=== PATIENT | female | born 2000 | race Caucasian/White ===

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

== ENCOUNTER 2020-08-27 20:24 | Inpatient (IN) | payer SELFPAY ==
[2020-08-27] VITALS (11 sets, daily range): BP systolic 105–142; BP diastolic 61–77; PULSE 113–140; RESP 16–23; TEMP 37.8; O2SAT 92–100
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
[2020-08-27 21:07] LABS: BE (Venous) 0 mmol/L (-2-3); HCO3 (Venous) 26 mmol/L (23-28); O2 Sat (Venous) 64 %; TCO2 (Venous) 23 mmol/L (24-29); pCO2 (Venous) 44 mmHg (41-51); pH (Venous) 7.37 (7.31-7.41); pO2 (Venous) 33 mmHg
[2020-08-27 21:08] LABS: Lactate 0.9 mmol/L (0.6-1.4)
[2020-08-27 21:10] LABS: Absolute Neutrophil Count 18.18 10^3/uL (1.2-6.7); Basophils % 0.2; HCT 39.9 % (36.0-46.0); HGB 13.7 g/dL (11.2-15.7); Immature Grans % 0.5; Lymphocytes % 5.1; MCH 30.2 pg (27.0-33.0); MCHC 34.3 % (32.0-36.0); MCV 87.9 fL (80-95); MPV 10.1 fL (8.0-11.0); Monocytes % 6.9; Neutrophils % 87.3; Nucleated RBC 0 %; Platelet Count 316 10^3/uL (130-400); RBC 4.54 10^6/uL (3.93-5.22); RDW 11.2 % (11.7-14.6); RDW-SD 35.8 fL; WBC 20.83 10^3/uL (4.4-10.8)
--- NOTE | 2020-08-27 21:17 | DI.CT_ITS ---
EXAM: CT LOWER EXTREMITY RT W CLINICAL HISTORY: fever, pain, erythema. TECHNIQUE: Imaging Protocol: Axial computed tomography images with coronal and sagittal reformatted images were created and reviewed. CONTRAST MATERIAL: Intravenous: Omnipaque 350 Contrast volume:100 ml Contrast route:IV - Oral: no COMPARISON: No exams were available for comparison FINDINGS: There is no evidence of fracture. Hip joint appears intact. No bony erosions are seen. There is so ft tissue thickening and stranding in the posterolateral aspect of the thigh. There is no drainable collection or abnormal gas. The visualized portions of the pelvis are unremarkable. The vasculature is patent. IMPRESSION: Findings consistent with cellulitis of the posterolateral thigh. RADIATION DOSE DELIVERED: 512.05mGy.cm Total DLP DATA REPOSITORY: All CT scans at this facility are submitted to the National Radiology Data Registry (NRDR) Dose Index Registry (DIR) with the [employer] ([employer]). RADIATION OPTIMIZATION: All CT scans at this facility use at least one of these dose optimization te chniques: automated exposure control; mA and/or kV adjustment per patient size (includes targeted exa ms where dose is matched to clinical indication); or iterative reconstruction.
[2020-08-27 21:19] LABS: Absolute Basophil Count 0.04 10^3/uL (0.0-0.2); Absolute Lymphocyte Count 1.06 10^3/uL (1.2-3.4); Absolute Monocyte Count 1.44 10^3/uL (0.1-0.8)
[2020-08-27] MEDS: Ketorolac 30 MG/ML VIAL IVP (21:20)
[2020-08-27] MEDS: CLINDAMYCIN 900 MG/50 ML BAG 50 MG IVPB (21:20)
[2020-08-27] MEDS: Lactated Ringers 2,000 ML 1000 ML IV (21:20)
[2020-08-27] MEDS: Omnipaque 350 MG/ML 100 ML BTL IV (21:30)
[2020-08-27] MEDS: Normal Saline - Diluent 50 ML VIAL IV (21:35)
[2020-08-27] MEDS: Normal Saline Flush 10 ML SYR IVP (21:35)
[2020-08-27 21:40] LABS: Creatine Kinase 107 U/L (26-192)
[2020-08-27 21:49] LABS: ALT 40 U/L (14-59); AST 21 U/L (15-37); Albumin 4.4 g/dL (3.4-5.0); Alkaline Phosphatase 62 U/L (46-116); Anion Gap 9.2 mmol/L (3-11); BUN 9 mg/dL (7-18); Bilirubin, Total 0.7 mg/dL (0.2-1.0); CO2 26.8 mmol/L (21.0-32.0); CREATININE 0.96 mg/dL (0.55-1.02); Chloride 104 mmol/L (98-107); Glucose 89 mg/dL (74-106); Potassium 3.5 mmol/L (3.5-5.1); Sodium 140 mmol/L (136-145); Total Protein 7.8 g/dL (6.4-8.2)
[2020-08-27 21:52] LABS: Bilirubin Negative (Negative); Blood Negative (Negative); Clarity Sl Cloudy (Clear); Glucose Negative (Negative); Ketones Negative (Negative); Leukocyte Esterase Trace (Negative); Nitrite Negative (Negative); RBC Negative HPF (0-2); Specific Gravity >= 1.030 (1.005-1.025); Urobilinogen 0.2 EU/dL (Up TO 0.2); pH 5.5 (5-8)
[2020-08-27 21:53] LABS: Bacteria Many HPF (Negative); C & S Indicated? No/Sq. Contamination; Casts Negative LPF (Negative); Crystals Negative HPF (Negative); Epithelial Cells Many HPF (Negative); Mucus Negative (Negative)
[2020-08-27] MEDS: LORazepam 2 MG/ML VIAL 0.5 MG IVP (21:53)
[2020-08-27] MEDS: VANCOMYCIN 1,250 MG in Normal Saline 250 ML 166.6666 MG IVPB (22:02)
--- NOTE | 2020-08-27 22:24 | DI.VRAD_ITS ---
PROCEDURE INFORMATION: Exam: CT Right Lower Extremity With Contrast; Thigh Exam date and time: 08/27/2020 9:37 PM Age: 19 years old Clinical indication: Thigh; Right; Patient HX: Fever, pain, erythema, eval for nec fasc TECHNIQUE: Imaging protocol: CT of the Right lower extremity from level of pelvis to knee joint with intravenous contrast was performed. Exam focused on the thigh. Radiation optimization: All CT scans at this facility use at least one of these dose optimization techniques: automated exposure control; mA and/or kV adjustment per patient size (includes targeted exams where dose is matched to clinical indication); or iterative reconstruction. Contrast material: OMNIPAQUE 350; Contrast volume: 100 ml; Contrast route: INTRAVENOUS (IV); COMPARISON: No relevant prior studies available. FINDINGS: Bones/joints: Normal. No acute fracture or dislocation. Soft tissues: Skin thickening to 5 mm with subjacent stranding of subcutaneous fat in posterolateral aspect of the thigh. No subcutaneous gas, collections or air-fluid levels in the affected area. Vasculature: Right iliac, femoral and popliteal as well as visualized portions of right infrapopliteal arteries are patent without stenosis. Bowel: No dilated loops of bowel. Appendix: Normal appendix. Bladder: Visualized portion of urinary bladder appears normal. Reproductive: Anteverted uterus. IMPRESSION: Findings consistent with the presence of cellulitis in posterolateral thigh. Dictated and Authenticated by: Ben Peterson MD. Ordering:JAIRO Eckert MD
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
[2020-08-28] VITALS (10 sets, daily range): BP systolic 96–129; BP diastolic 47–76; PULSE 77–117; RESP 17–22; TEMP 36.4–38.6; O2SAT 95–100
[2020-08-28] MEDS: Normal Saline Flush 10 ML SYR IVP ×2 (00:44→10:25)
[2020-08-28] MEDS: Acetaminophen 500 MG TAB (04:50)
[2020-08-28] MEDS: CLINDAMYCIN 900 MG/50 ML BAG 50 MG IVPB ×3 (04:56→20:53)
[2020-08-28] MEDS: Acetaminophen 325 MG TAB 1000 MG PO (04:57)
[2020-08-28 06:57] LABS: Abs Immature Grans 0.08 10^3/uL (0.0-0.06); Absolute Basophil Count 0.04 10^3/uL (0.0-0.2); Absolute Eosinophil Count 0.03 10^3/uL (0.0-0.7); Absolute Monocyte Count 1.41 10^3/uL (0.1-0.8); Absolute Neutrophil Count 11.14 10^3/uL (1.2-6.7); Basophils % 0.3; Eosinophils % 0.2; HGB 11.7 g/dL (11.2-15.7); Immature Grans % 0.6; Lymphocytes % 9.9; MCH 29.7 pg (27.0-33.0); MCHC 34.4 % (32.0-36.0); MCV 86.3 fL (80-95); MPV 10.1 fL (8.0-11.0); Nucleated RBC 0 %; Platelet Count 273 10^3/uL (130-400); RBC 3.94 10^6/uL (3.93-5.22); RDW 11.3 % (11.7-14.6); RDW-SD 35.8 fL
[2020-08-28 07:08] LABS: ALT 31 U/L (14-59); AST 13 U/L (15-37); Albumin 3.3 g/dL (3.4-5.0); Alkaline Phosphatase 50 U/L (46-116); Anion Gap 9.5 mmol/L (3-11); BUN 9 mg/dL (7-18); Bilirubin, Total 1.2 mg/dL (0.2-1.0); CO2 24.5 mmol/L (21.0-32.0); CREATININE 0.93 mg/dL (0.55-1.02); Calcium 8.2 mg/dL (8.5-10.1); Chloride 104 mmol/L (98-107); Glucose 101 mg/dL (74-106); Potassium 3.2 mmol/L (3.5-5.1); Sodium 138 mmol/L (136-145); Total Protein 6.3 g/dL (6.4-8.2)
[2020-08-28] MEDS: Potassium Chloride 20 MEQ TABCR 40 MEQ PO (08:05)
[2020-08-28 08:38] LABS: *AMPHETAMINES SCREEN URINE Negative (Negative); *BARBITURATES SCREEN URINE Negative (Negative); *BENZODIAZEPINES SCREEN URINE Negative (Negative); Cannabinoids THC Negative (Negative); Cocaine Screen,Urine Negative (Negative); METHADONE URINE SCREEN Negative (Negative); OPIATES URINE SCREEN Negative (Negative)
[2020-08-28 08:57] LABS: Tricyclic Antidepressants Negative (Negative)
[2020-08-28] MEDS: Normal Saline 1,000 ML 100 ML IV ×2 (10:25→22:40)
--- NOTE | 2020-08-28 10:41 | INITIAL_ITS ---
- If Service Date Differs Date of service: 08/28/20 Time of Service: 10:41 Care Management Initial Assess REASON FOR HOSPITALIZATION:: Cellulitis and abscess of leg PAST MEDICAL HISTORY/PAST SURGICAL HISTORY:: Medical History . Anxiety. Breast mass, left. Depression. Eczema. Hearing decreased. Homeless single person. Otalgia of both ears. School problem. Sleep difficulties. Snoring. Surgical History . Tooth extraction PREVIOUS FUNCTIONAL STATUS/SOCIAL/FAMILY SUPPORTS:: Radha lives in an apartment in [facility] with her borfriend. She has several siblings but they are not in this area and only talk once in a while. Radha stated that she works at [employer] and is no longer eligible for Medicaid. Radha is independent at baseline. CURRENT FUNCTIONAL STATUS:: Radha was lying in bed when CM met with her. Shemaintained minimal contact and did not fully engage with CM. This afternoon she was crying and admitted that she was scared because her provider told her she needed surgery. Her boyfriend is her only support but he is planning to visit this afternoon. ADVANCE DIRECTIVES:: none on file Has patient been provided with info about the portal/API?: Yes Did the patient sign up for the portal?: No CODE STATUS:: Full Code INSURANCE COVERAGE / FINANCIAL ISSUES:: Self Pay. A referral has been made for Medicaid. CM will follow up PRIMARY CARE PHYSICIAN:: Ramon Can POTENTIAL DISCHARGE NEEDS:: Follow up with PCP and discharge plan PATIENT/FAMILY EDUCATION NEEDS:: Discharge plan, limitations, follow up plan, [facility] Me [employer] TRANSPORTATION:: via private vehicle PLAN:: Radha will likely be discharged with no home services. She willl follow up with her PCP and discharge plan of care. CM will followup re: Medicaid application and continue to support Radha and her discharge needs.
[2020-08-28 14:06] LABS: C-Reactive Protein 2.24 mg/dL (0.0-0.3)
[2020-08-28 15:03] LABS: COVID-19 RT-PCR UVMMC Result Negative (Negative)
--- NOTE | 2020-08-28 15:12 | NUR.NOTE ---
Nursing Note: Spoke with step mother Elana Galo to update on pt condition and on hippa list.
--- NOTE | 2020-08-28 15:20 | W.PM.PROGNOT ---
Date of Service Date of service: 08/28/20 Time of Service: 15:20 Assessment and Plan Assessment and plan (1) Sepsis: Status: Acute Assessment and plan: Due to cellulitis/possible forming abscess RLE. Blood cultures are pending. The patient is on vancomycin, clindamycin, and ertapenem and getting worse despite these interventions. I have consulted general surgery for possible debridement/I&D. Continue IVF, above abx. (2) Cellulitis of right lower extremity: Status: Acute Assessment and plan: As above (3) Hypokalemia: Status: Acute Assessment and plan: Replete and monitor (4) Major depression: Status: Chronic Assessment and plan: The patient states that she is not so much depressed as she is very anxious. She states that she used to be on fluoxetine but could no longer afford it so she stopped taking it. She is interested in resuming it again. WIll start 20 mg of fluoxetine tomorrow am. Will speak with care management about resources to help afford this medication in the community. Qualifiers: Major depression recurrence: recurrent Active/Remission status: in partial remission Qualified Code(s): F33.41 - Major depressive disorder, recurrent, in partial remission (5) DVT prophylaxis: Status: Acute Assessment and plan: Not required in an ambulatory 19 year old female (6) Discharge planning issues: Status: Acute Assessment and plan: Full code Continues to require hospitalization. Subjective Subjective Interval history since last seen: Radha states that her R thigh hurts and that she feels tired. She denies dizziness, chest pain, shortness of breath, nausea. She denies seeing an insect actually biting her. The erythema now extends outside of the circumscribed lines. Febrile now - 38.6. Exam Narrative Exam Narrative: General: pleasant female, does not appear in acute distress, A&Ox3, uncomfortable HEENT: EOMI, MMM Heart: RRR, tachycardic Lungs: CTAB Abdomen: soft, nontender, nondistended Extremities: R lateral thigh with an area of erythema extending beyond the circumscribed line with a wound/bullae which is leaking. Objective Last Vital Signs Temp 37.3 C 08/28/20 11:10 Pulse 95 H 08/28/20 11:10 Resp 19 08/28/20 11:10 BP 100/66 08/28/20 11:10 Pulse Ox 100 08/28/20 11:10 Laboratory Results - last 24 hr 08/27/20 08/27/20 08/27/20 20:49 20:51 20:55 WBC RBC Hgb Hct MCV MCH MCHC RDW Plt Count MPV Immature Gran % Neutrophils % Lymphocytes % Monocytes % Eosinophils % Basophils % Nucleated RBC % Absolute Neutrophils Absolute Lymphocytes Absolute Monocytes Absolute Eosinophils Absolute Basophils VBG pH 7.37 VBG pCO2 44 VBG pO2 33 VBG HCO3 26 VBG Total CO2 23 L VBG O2 Saturation 64 VBG Base Excess 0 VBG Lactate Sodium Potassium Chloride Carbon Dioxide Anion Gap BUN Creatinine Estimated GFR/1.73 m2 Glucose Calcium Magnesium Total Bilirubin AST ALT Alkaline Phosphatase Creatine Kinase C-Reactive Protein Total Protein Albumin Urine Color Yellow Urine Clarity Sl cloudy Urine pH 5.5 Ur Specific [place] >= 1.030 H Urine Protein Negative Urine Ketones Negative Urine Blood Negative Urine Nitrite Negative Urine Bilirubin Negative Urine Urobilinogen 0.2 Ur Leukocyte Esterase Trace H Urine RBC Negative Urine WBC 10-20 H Ur Epithelial Cells Many Urine Crystals Negative Urine Bacteria Many Urine Casts Negative Urine Mucus Negative Ur Culture Indicated? No/sq. contamination Urine Glucose Negative Urine Opiates Screen Negative Urine Methadone Screen Negative Ur Barbiturates Screen Negative Ur Tricyclics Screen Negative Ur Amphetamines Screen Negative U Benzodiazepines Scrn Negative Urine Cocaine Screen Negative Ur THC Screen Negative COVID-19 PCR Nasopharyn COVID-19 PCR Ref Test Perform Site 08/27/20 08/27/20 08/27/20 21:00 21:00 21:00 WBC 20.83 H RBC 4.54 Hgb 13.7 Hct 39.9 MCV 87.9 MCH 30.2 MCHC 34.3 RDW 11.2 L Plt Count 316 MPV 10.1 Immature Gran % 0.5 Neutrophils % 87.3 Lymphocytes % 5.1 Monocytes % 6.9 Eosinophils % 0.0 Basophils % 0.2 Nucleated RBC % 0 Absolute Neutrophils 18.18 H Absolute Lymphocytes 1.06 L Absolute Monocytes 1.44 H Absolute Eosinophils 0.00 Absolute Basophils 0.04 VBG pH VBG pCO2 VBG pO2 VBG HCO3 VBG Total CO2 VBG O2 Saturation VBG Base Excess VBG Lactate 0.9 Sodium 140 Potassium 3.5 Chloride 104 Carbon Dioxide 26.8 Anion Gap 9.2 BUN 9 Creatinine 0.96 Estimated GFR/1.73 m2 >= 60.00 Glucose 89 Calcium 9.0 Magnesium Total Bilirubin 0.7 AST 21 ALT 40 Alkaline Phosphatase 62 Creatine Kinase C-Reactive Protein Total Protein 7.8 Albumin 4.4 Urine Color Urine Clarity Urine pH Ur Specific [place] Urine Protein Urine Ketones Urine Blood Urine Nitrite Urine Bilirubin Urine Urobilinogen Ur Leukocyte Esterase Urine RBC Urine WBC Ur Epithelial Cells Urine Crystals Urine Bacteria Urine Casts Urine Mucus Ur Culture Indicated? Urine Glucose Urine Opiates Screen Urine Methadone Screen Ur Barbiturates Screen Ur Tricyclics Screen Ur Amphetamines Screen U Benzodiazepines Scrn Urine Cocaine Screen Ur THC Screen COVID-19 PCR Nasopharyn COVID-19 PCR Ref Test Perform Site 08/27/20 08/27/20 08/28/20 21:00 23:58 06:40 WBC RBC Hgb Hct MCV MCH MCHC RDW Plt Count MPV Immature Gran % Neutrophils % Lymphocytes % Monocytes % Eosinophils % Basophils % Nucleated RBC % Absolute Neutrophils Absolute Lymphocytes Absolute Monocytes Absolute Eosinophils Absolute Basophils VBG pH VBG pCO2 VBG pO2 VBG HCO3 VBG Total CO2 VBG O2 Saturation VBG Base Excess VBG Lactate Sodium 138 Potassium 3.2 L Chloride 104 Carbon Dioxide 24.5 Anion Gap 9.5 BUN 9 Creatinine 0.93 Estimated GFR/1.73 m2 >= 60.00 Glucose 101 Calcium 8.2 L Magnesium Total Bilirubin 1.2 H AST 13 L ALT 31 Alkaline Phosphatase 50 Creatine Kinase 107 C-Reactive Protein Total Protein 6.3 L Albumin 3.3 L Urine Color Urine Clarity Urine pH Ur Specific [place] Urine Protein Urine Ketones Urine Blood Urine Nitrite Urine Bilirubin Urine Urobilinogen Ur Leukocyte Esterase Urine RBC Urine WBC Ur Epithelial Cells Urine Crystals Urine Bacteria Urine Casts Urine Mucus Ur Culture Indicated? Urine Glucose Urine Opiates Screen Urine Methadone Screen Ur Barbiturates Screen Ur Tricyclics Screen Ur Amphetamines Screen U Benzodiazepines Scrn Urine Cocaine Screen Ur THC Screen COVID-19 PCR Negative Nasopharyn COVID-19 PCR Not Applicable Ref Test Perform Site [place] [facility] 08/28/20 08/28/20 06:40 06:40 WBC 14.10 H D RBC 3.94 Hgb 11.7 Hct 34.0 L MCV 86.3 MCH 29.7 MCHC 34.4 RDW 11.3 L Plt Count 273 MPV 10.1 Immature Gran % 0.6 Neutrophils % 79.0 Lymphocytes % 9.9 Monocytes % 10.0 Eosinophils % 0.2 Basophils % 0.3 Nucleated RBC % 0 Absolute Neutrophils 11.14 H Absolute Lymphocytes 1.40 Absolute Monocytes 1.41 H Absolute Eosinophils 0.03 Absolute Basophils 0.04 VBG pH VBG pCO2 VBG pO2 VBG HCO3 VBG Total CO2 VBG O2 Saturation VBG Base Excess VBG Lactate Sodium Potassium Chloride Carbon Dioxide Anion Gap BUN Creatinine Estimated GFR/1.73 m2 Glucose Calcium Magnesium 2.0 Total Bilirubin AST ALT Alkaline Phosphatase Creatine Kinase C-Reactive Protein 2.24 H Total Protein Albumin Urine Color Urine Clarity Urine pH Ur Specific [place] Urine Protein Urine Ketones Urine Blood Urine Nitrite Urine Bilirubin Urine Urobilinogen Ur Leukocyte Esterase Urine RBC Urine WBC Ur Epithelial Cells Urine Crystals Urine Bacteria Urine Casts Urine Mucus Ur Culture Indicated? Urine Glucose Urine Opiates Screen Urine Methadone Screen Ur Barbiturates Screen Ur Tricyclics Screen Ur Amphetamines Screen U Benzodiazepines Scrn Urine Cocaine Screen Ur THC Screen COVID-19 PCR Nasopharyn COVID-19 PCR Ref Test Perform Site
--- NOTE | 2020-08-28 15:31 | PHA.REVIEW ---
Pharmacy Admission Review - Admission Clinical Review (Last Reviewed 08/28/20 @ 05:43 by Apolinar Gleason) Discharge planning issues (Acute) DVT prophylaxis (Acute) Hypokalemia (Acute) Cellulitis of right lower extremity (Acute) Sepsis (Acute) Cellulitis and abscess of leg (Acute) Fasciitis (Acute) cigarette smoke Allergy (Intermediate, Unverified 08/27/20 20:40) house dust Allergy (Intermediate, Unverified 08/27/20 20:40) No Known Drug Allergies Allergy (Unverified 08/27/20 20:40) Height 5 ft 3 in Weight 76.1 kg Cellulitis on thigh - Renal Dosing Renal Dosing: BUN 9 mg/dL (7-18) 08/28/20 06:40 Creatinine 0.93 mg/dL (0.55-1.02) 08/28/20 06:40 CrCl~80ml/min Medications needing adjustments: Reviewed (no med adjustments) - Anticoagulation Anticoagulation: Hgb 11.7 g/dL (11.2-15.7) 08/28/20 06:40 Hct 34.0 % (36.0-46.0) L 08/28/20 06:40 Plt Count 273 10^3/uL (130-400) 08/28/20 06:40 Creatinine 0.93 mg/dL (0.55-1.02) 08/28/20 06:40 DVT Prohphylaxis: N/A (held at this time in case surgeon decides to do a debridement) - Opiate Usage Evaluate Pain Scale/Pains Meds: N/A - Relevant Labs Sodium 138 mmol/L (136-145) 08/28/20 06:40 Potassium 3.2 mmol/L (3.5-5.1) L 08/28/20 06:40 Chloride 104 mmol/L (98-107) 08/28/20 06:40 Magnesium 2.0 mg/dL (1.8-2.4) 08/28/20 06:40 C-Reactive Protein 2.24 mg/dL (0.0-0.3) H 08/28/20 06:40 Electrolytes, C-Reactive P, ESR: Reviewed (Potassium 40meq po x1, WBC down 14.1, trend C-reative protein) - DM Control DM Control: Glucose 101 mg/dL (74-106) 08/28/20 06:40 Insulin Dosing: N/A - Heart Failure/CA EF%, MICHAEL's, B-Blockers, Diuretics: N/A - BP Control BP Control: Blood Pressure 100/66 Blood Pressure 118/72 Blood Pressure 96/59 If elevated: N/A (low BP/sepsis) - IV to PO Switch IV Medications: Reviewed (Ketorolac is IV/prn, IV to oral Antibiotics when appropriate) - Home Meds Home Med List reviewed: Reviewed Relevent Home Meds Not ordered & why?: Fluoxetine not ordered-last filled at retail pharmacy for 30 day supply 04/16/20 - Current meds Current Medication Order Review: Reviewed (Vanco/Ertapenam/Clindamycin, Toradol/APAP for pain -03/08) - Comments Comments/Follow Ups: Had fevers yesterday, Signs of Sepsis with low BP's and high heart rates>100. Blood cultures and leg wound cultures pending and then hopefully can de-escalate. Trend WBC. Procalcitonin was not ordered. Surgery consult for possible debridement of RLE ?Abscess. Watch for DVT prophylaxis if needed, although patient of young age and ambulating Antibiotic Activity - Pharmacy Antibiotic Review Pharmacy Antibiotic Activity: C/S review (Triple Antibiotic coverage for Sepsis from RLE cellulitis-blood and wound cultures pending) - Antibiotic Information Antibiotic Review Info: Triple Antibiotic coverage for Sepsis from RLE cellulitis-blood and wound cultures pending
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
--- NOTE | 2020-08-28 16:03 | NUR.NOTE ---
Nursing Note: @ 1520 - NEW LINES DRAWN AROUND RED/TENDER AREA SURROUNDING RIGHT THIGH WOUND (LINE TIME & DATED)
--- NOTE | 2020-08-28 18:00 | W.PM.OP ---
Date of service: 08/28/20 Time of Service: 18:00 Operative Note Operative Note DATE OF PROCEDURE: 08/28/20 PRE-OP DIAGNOSIS: Infection of right thigh POST-OP DIAGNOSIS: same PROCEDURE: Excision of infected skin and cultures SURGEON: Sally Perez AVIATION PROJECT MANAGER: Joann Treviño ANESTHESIA: MAC and spinal ESTIMATED BLOOD LOSS: 25 PATHOLOGY: none sent COMPLICATIONS: None Patient was transported to: floor Patient's condition: stable Indications: 10 x4 cm area of blistering and necrosis of the skin surrounded by an area of erythema. Concern for Necrotizing fascitis Discussed excision of the nnecrosed skin with the patient and debridement of tissues as needed to remove the infected area. Questions were entertained and answered to her satisfaction and she wished to proceed. No guarantees were given or implied. Findings: Necrosis of skin and purulent pustules. Fat and fascia intact Procedure Description: After informed consent was obtained the patient was taken to the operating room. Anesthesia proceeded to do a spinal anesthetic. The patient was then placed onto her left side with her right knee bent. She was secured in this position with a beanbag. Monitors were applied and she was then given a small amount of sedation. Her right thigh was then prepped and draped in a sterile surgical fashion with iodine. Next the skin was tested with forceps and the patient was unable to feel anything. The blisters were then opened and there was purulent material noted within it. The purulent fluid was cultured both anaerobic and aerobic. The blisters were all scraped away from the skin. The underlying dermis was noted to be white. An incision was made around the necrosis to the skin measuring 10 x 4 cm. The dermis was removed and the sucutaneous tissue was inspected. The skin was send to the lab for cultures. The fatty tissue was all noted to be normal. There was no grayish fluid. An incision was made into the subcutaneous tissue and gently with a hemostat down to the fascia. The fascia was noted to be normal. It was strong and there was no purulent discharge anywhere. The subcutaneous tissue was gently irrigated and the skin was cleaned and dried. A 15 x 5 cm jeremías dressing was applied. The dressing was placed to suction and no leaks were identified. The patient was moved onto the [facility] and taken back upstairs to her room.
--- NOTE | 2020-08-28 18:05 | NUR.NOTE ---
Nursing Note: 08/28/20- pt returned from OR. Pt Awake. BP 98/47, HR 98, SPO2 98% ON ra, TEMP 37.4 with a skin temp reading.Pt denies pain/ SOB, rr 22. MYESHA negative pressure dressing in place posterior right thigh. Pt denies feeling to ble to hip per pt. Scant bloody strike through on dressing.
[2020-08-29 03:29] VITALS: BP 96/60; PULSE 90; RESP 17; TEMP 36.5; O2SAT 97
[2020-08-29] MEDS: CLINDAMYCIN 900 MG/50 ML BAG 50 MG IVPB ×3 (04:06→20:36)
[2020-08-29 06:55] LABS: Abs Immature Grans 0.04 10^3/uL (0.0-0.06); Absolute Basophil Count 0.04 10^3/uL (0.0-0.2); Absolute Eosinophil Count 0.13 10^3/uL (0.0-0.7); Absolute Lymphocyte Count 1.57 10^3/uL (1.2-3.4); Absolute Monocyte Count 1.21 10^3/uL (0.1-0.8); Basophils % 0.4; Eosinophils % 1.2; HCT 35.2 % (36.0-46.0); HGB 11.8 g/dL (11.2-15.7); Immature Grans % 0.4; Lymphocytes % 14.2; MCH 29.9 pg (27.0-33.0); MCHC 33.5 % (32.0-36.0); MCV 89.3 fL (80-95); MPV 10.2 fL (8.0-11.0); Monocytes % 10.9; Neutrophils % 72.9; Nucleated RBC 0 %; Platelet Count 250 10^3/uL (130-400); RBC 3.94 10^6/uL (3.93-5.22); RDW 11.4 % (11.7-14.6); RDW-SD 36.9 fL; WBC 11.08 10^3/uL (4.4-10.8)
[2020-08-29 07:00] LABS: Absolute Neutrophil Count 8.08 10^3/uL (1.2-6.7)
[2020-08-29 07:08] LABS: Anion Gap 8.1 mmol/L (3-11); BUN 7 mg/dL (7-18); C-Reactive Protein 5.73 mg/dL (0.0-0.3); CO2 23.9 mmol/L (21.0-32.0); CREATININE 0.84 mg/dL (0.55-1.02); Calcium 8.4 mg/dL (8.5-10.1); Chloride 107 mmol/L (98-107); Glucose 95 mg/dL (74-106); Magnesium 2.1 mg/dL (1.8-2.4); Potassium 3.8 mmol/L (3.5-5.1); Sodium 139 mmol/L (136-145)
[2020-08-29 07:40] VITALS: BP 105/70; PULSE 78; RESP 16; TEMP 37.1; O2SAT 99
--- NOTE | 2020-08-29 08:02 | W.PM.PROGNOT ---
Documented by User: CRISTINA Blanchard 08/29/20 08:10 Date of Service Date of service: 08/29/20 Time of Service: 08:02 Assessment and Plan Assessment and plan (1) Cellulitis of right lower extremity: Status: Acute Assessment and plan: POD #1 s/p Wound debridement Cultures pending. Continue IV antibitoics MYESHA dressing in place. Educated the patient on how the pump will alarm/lightif the dressing needs to be changed secondary to wound drainage. Erythema present around the MYESHA dressing, appears hearing health technician in color compared to yesterday. Pain has improved significantly Subjective Subjective Interval history since last seen: Radha reports she is feeling better this morning and that her pain is improving. Exam Const General: cooperative, healthy appearing and comfortable Orientation: alert and oriented x3 Resp Effort & Inspection: normal respiratory effort, no audible wheezes and no cough Skin Other: Right thigh- MYESHA dressing in place. Some drainage noted on the dressing. Objective Last Vital Signs Temp 37.1 C 08/29/20 07:40 Pulse 78 08/29/20 07:40 Resp 16 08/29/20 07:40 BP 105/70 08/29/20 07:40 Pulse Ox 99 08/29/20 07:40 Laboratory Results - last 24 hr 08/27/20 08/27/20 08/28/20 20:51 23:58 06:40 WBC RBC Hgb Hct MCV MCH MCHC RDW Plt Count MPV Immature Gran % Neutrophils % Lymphocytes % Monocytes % Eosinophils % Basophils % Nucleated RBC % Absolute Neutrophils Absolute Lymphocytes Absolute Monocytes Absolute Eosinophils Absolute Basophils Sodium Potassium Chloride Carbon Dioxide Anion Gap BUN Creatinine Estimated GFR/1.73 m2 Glucose Calcium Magnesium 2.0 C-Reactive Protein 2.24 H Urine Opiates Screen Negative Urine Methadone Screen Negative Ur Barbiturates Screen Negative Ur Tricyclics Screen Negative Ur Amphetamines Screen Negative U Benzodiazepines Scrn Negative Urine Cocaine Screen Negative Ur THC Screen Negative COVID-19 PCR Negative Nasopharyn COVID-19 PCR Not Applicable Ref Test Perform Site [facility] 08/29/20 08/29/20 06:30 06:30 WBC 11.08 H RBC 3.94 Hgb 11.8 Hct 35.2 L MCV 89.3 D MCH 29.9 MCHC 33.5 RDW 11.4 L Plt Count 250 MPV 10.2 Immature Gran % 0.4 Neutrophils % 72.9 Lymphocytes % 14.2 Monocytes % 10.9 Eosinophils % 1.2 Basophils % 0.4 Nucleated RBC % 0 Absolute Neutrophils 8.08 H Absolute Lymphocytes 1.57 Absolute Monocytes 1.21 H Absolute Eosinophils 0.13 Absolute Basophils 0.04 Sodium 139 Potassium 3.8 Chloride 107 Carbon Dioxide 23.9 Anion Gap 8.1 BUN 7 Creatinine 0.84 Estimated GFR/1.73 m2 >= 60.00 Glucose 95 Calcium 8.4 L Magnesium 2.1 C-Reactive Protein 5.73 H Urine Opiates Screen Urine Methadone Screen Ur Barbiturates Screen Ur Tricyclics Screen Ur Amphetamines Screen U Benzodiazepines Scrn Urine Cocaine Screen Ur THC Screen COVID-19 PCR Nasopharyn COVID-19 PCR Ref Test Perform Site Documented by User: Massiel Ruiz DO 08/29/20 20:18 Assessment and Plan Assessment and plan (1) Cellulitis of right lower extremity: Status: Acute Assessment and plan: Abx: Vanco and Ertepenem PICOs was full today and was changed. Good healthy/beefy granulation tissue present in wound bed. 95% grannular. 5% slough. Not debrided. Surrounding tissue better per pt. C/S pd supportive care
[2020-08-29 09:14] LABS: Procalcitonin 0.1 ng/mL
[2020-08-29 09:35] LABS: Vancomycin, Trough 14.6 ug/mL (10.0-20.0)
[2020-08-29] MEDS: Normal Saline 1,000 ML 100 ML IV (10:36)
[2020-08-29 11:19] VITALS: BP 111/71; PULSE 91; RESP 18; TEMP 36.2; O2SAT 99
--- NOTE | 2020-08-29 11:47 | CMPROGNOTE_ITS ---
- If Service Date Differs Date of service: 08/29/20 Time of Service: 11:47 Care Management Progress Note S/O: Radha was lying on her side in bed when CM met with her. She smiled spontaneously and offered that she is feeling much better. She stated that the surgery was not as bad as she anticipated and that it really helped to have her boyfriend with her. Radha is not clear about what the plan for her is at this time. She said the doctor told her they need to wait to find out what the bact eria is and which antibiotic will be needed. A: Radha is a 19 year old woman admitted on 08/27/20 with cellulitis and abscess of right posterior thigh P:Radha will likely be discharged with no home services. She will follow up with her PCP, surgeon and discharge plan of care. CM left message with [employer] re: Medicaid application and will continue to support Radha and her discharge needs.
--- NOTE | 2020-08-29 12:25 | W.NUTRFU ---
Date of service: 08/29/20 Time of Service: 12:25 Nutritional Follow up NOTE: met with Radha today. She reports eating once daily prior to admission. Following regular meal plan. Weight has been stable > 6 months. PO intake since admit has been poor, however, BF is bringing in food. Reviewed balanced meals and importance of meeting nutrient and fluid needs. Provided my contact information for questions. Time Spent in Nutritional Counseling and Treatment: 10 minutes spent face to face
--- NOTE | 2020-08-29 14:57 | PGE_ITS ---
Date of Service Date of service: 08/29/20 Time of Service: 14:57 Assessment and Plan Assessment and plan (1) Sepsis: Status: Acute Assessment and plan: Due to infected wound and cellulitis RLE. It does not appear that there was necrotizing fasciitis on I&D yesterday. Blood cultures are negative to date. Wound cultures/surgical cultures are pending. Defervesced and WBC is better. Continue vancomycin, clindamycin, and ertapenem (Agree with probiotics). Continue IVF. (2) Cellulitis of right lower extremity: Status: Acute Assessment and plan: As above (3) Hypokalemia: Status: Resolved Assessment and plan: Recheck in am. (4) Major depression: Status: Chronic Assessment and plan: Fluoxetine 20 mg PO daily. Discused with care management re issues with affording this medication. It is on the $4 list at [facility]. Qualifiers: Major depression recurrence: recurrent Active/Remission status: in partial remission Qualified Code(s): F33.41 - Major depressive disorder, recurrent, in partial remission (5) DVT prophylaxis: Status: Acute Assessment and plan: Not required in an ambulatory 19 year old female (6) Discharge planning issues: Status: Acute Assessment and plan: Full code Continues to require hospitalization. Subjective Subjective Interval history since last seen: S/p I&D of R thigh wound yesterday. Radha states she is feeling better today. She denies dizziness, chest pain, shortness of breath, nausea. I talked to her about watching out for sx of yeast infection. Her pain is better today. Exam Narrative Exam Narrative: General: pleasant female, A&Ox3, looks better HEENT: EOMI, MMM Heart: RRR, not tachycardic, no m/r/g Lungs: CTAB Abdomen: soft, nontender, nondistended Extremities: R lateral thigh with wound vac in place; erythema signficantly improved from yesterday Objective Last Vital Signs Temp 36.2 C L 08/29/20 11:19 Pulse 91 H 08/29/20 11:19 Resp 18 08/29/20 11:19 BP 111/71 08/29/20 11:19 Pulse Ox 99 08/29/20 11:19 Laboratory Results - last 24 hr 08/27/20 08/29/20 08/29/20 23:58 06:30 06:30 WBC 11.08 H RBC 3.94 Hgb 11.8 Hct 35.2 L MCV 89.3 D MCH 29.9 MCHC 33.5 RDW 11.4 L Plt Count 250 MPV 10.2 Immature Gran % 0.4 Neutrophils % 72.9 Lymphocytes % 14.2 Monocytes % 10.9 Eosinophils % 1.2 Basophils % 0.4 Nucleated RBC % 0 Absolute Neutrophils 8.08 H Absolute Lymphocytes 1.57 Absolute Monocytes 1.21 H Absolute Eosinophils 0.13 Absolute Basophils 0.04 Sodium 139 Potassium 3.8 Chloride 107 Carbon Dioxide 23.9 Anion Gap 8.1 BUN 7 Creatinine 0.84 Estimated GFR/1.73 m2 >= 60.00 Glucose 95 Calcium 8.4 L Magnesium 2.1 C-Reactive Protein 5.73 H Procalcitonin Vancomycin Trough COVID-19 PCR Negative Nasopharyn COVID-19 PCR Not Applicable Ref Test Perform Site [place] [facility] 08/29/20 08/29/20 06:30 09:12 WBC RBC Hgb Hct MCV MCH MCHC RDW Plt Count MPV Immature Gran % Neutrophils % Lymphocytes % Monocytes % Eosinophils % Basophils % Nucleated RBC % Absolute Neutrophils Absolute Lymphocytes Absolute Monocytes Absolute Eosinophils Absolute Basophils Sodium Potassium Chloride Carbon Dioxide Anion Gap BUN Creatinine Estimated GFR/1.73 m2 Glucose Calcium Magnesium C-Reactive Protein Procalcitonin 0.1 Vancomycin Trough 14.6 COVID-19 PCR Nasopharyn COVID-19 PCR Ref Test Perform Site
[2020-08-29 15:18] VITALS: BP 105/67; PULSE 64; RESP 16; TEMP 36.4; O2SAT 98
[2020-08-29 19:00] VITALS: BP 107/69; PULSE 71; RESP 18; TEMP 35.8; O2SAT 100
[2020-08-29 23:18] VITALS: BP 114/70; PULSE 84; RESP 18; TEMP 36.6; O2SAT 99
[2020-08-30] VITALS (9 sets, daily range): BP systolic 92–109; BP diastolic 58–72; PULSE 59–91; RESP 16–20; TEMP 36.4–38.1; O2SAT 98–100
[2020-08-30] MEDS: Normal Saline Flush 10 ML SYR IVP ×3 (01:59→17:46)
[2020-08-30] MEDS: CLINDAMYCIN 900 MG/50 ML BAG 50 MG IVPB (04:12)
[2020-08-30 06:53] LABS: Abs Immature Grans 0.01 10^3/uL (0.0-0.06); Absolute Basophil Count 0.03 10^3/uL (0.0-0.2); Absolute Eosinophil Count 0.18 10^3/uL (0.0-0.7); Absolute Lymphocyte Count 1.35 10^3/uL (1.2-3.4); Absolute Monocyte Count 0.72 10^3/uL (0.1-0.8); Absolute Neutrophil Count 2.78 10^3/uL (1.2-6.7); Basophils % 0.6; Eosinophils % 3.6; HCT 37.2 % (36.0-46.0); HGB 12.4 g/dL (11.2-15.7); Immature Grans % 0.2; Lymphocytes % 26.6; MCH 29.6 pg (27.0-33.0); MCHC 33.3 % (32.0-36.0); MCV 88.8 fL (80-95); MPV 10.2 fL (8.0-11.0); Monocytes % 14.2; Neutrophils % 54.8; Nucleated RBC 0 %; Platelet Count 269 10^3/uL (130-400); RBC 4.19 10^6/uL (3.93-5.22); RDW 11.4 % (11.7-14.6); RDW-SD 36.6 fL; WBC 5.07 10^3/uL (4.4-10.8)
[2020-08-30 07:09] LABS: Anion Gap 8.8 mmol/L (3-11); BUN 7 mg/dL (7-18); C-Reactive Protein 2.48 mg/dL (0.0-0.3); CO2 24.2 mmol/L (21.0-32.0); CREATININE 0.93 mg/dL (0.55-1.02); Calcium 8.4 mg/dL (8.5-10.1); Chloride 105 mmol/L (98-107); Glucose 93 mg/dL (74-106); Magnesium 2.1 mg/dL (1.8-2.4); Potassium 3.8 mmol/L (3.5-5.1); Sodium 138 mmol/L (136-145)
--- NOTE | 2020-08-30 07:57 | W.PM.PROGNOT ---
Date of Service Date of service: 08/30/20 Time of Service: 07:57 Assessment and Plan Assessment and plan (1) Cellulitis of right lower extremity: Status: Acute Assessment and plan: POD #2 s/p Wound debridement Cultures pending. Continue IV antibitoics MYESHA dressing in place. Erythema around the wound site, within the borders of outline from yesterday. Denies any pain today. Subjective Subjective Interval history since last seen: No pain today. Denies having any fevers. She is eager to return home. Exam Const General: cooperative, healthy appearing and comfortable Orientation: alert and oriented x3 Resp Effort & Inspection: normal respiratory effort, no audible wheezes and no cough Skin Other: Right lateral thigh- Myesha dressing in place. Erythema is within the outline drawn from yesterday Objective Last Vital Signs Temp 36.8 C 08/30/20 07:39 Pulse 61 08/30/20 07:39 Resp 20 08/30/20 07:39 BP 107/72 08/30/20 07:39 Pulse Ox 99 08/30/20 07:39 Laboratory Results - last 24 hr 08/29/20 08/29/20 08/30/20 06:30 09:12 06:23 WBC RBC Hgb Hct MCV MCH MCHC RDW Plt Count MPV Immature Gran % Neutrophils % Lymphocytes % Monocytes % Eosinophils % Basophils % Nucleated RBC % Absolute Neutrophils Absolute Lymphocytes Absolute Monocytes Absolute Eosinophils Absolute Basophils Sodium 138 Potassium 3.8 Chloride 105 Carbon Dioxide 24.2 Anion Gap 8.8 BUN 7 Creatinine 0.93 Estimated GFR/1.73 m2 >= 60.00 Glucose 93 Calcium 8.4 L Magnesium 2.1 C-Reactive Protein 2.48 H Procalcitonin 0.1 Vancomycin Trough 14.6 08/30/20 06:23 WBC 5.07 D RBC 4.19 Hgb 12.4 Hct 37.2 MCV 88.8 MCH 29.6 MCHC 33.3 RDW 11.4 L Plt Count 269 MPV 10.2 Immature Gran % 0.2 Neutrophils % 54.8 Lymphocytes % 26.6 Monocytes % 14.2 Eosinophils % 3.6 Basophils % 0.6 Nucleated RBC % 0 Absolute Neutrophils 2.78 Absolute Lymphocytes 1.35 Absolute Monocytes 0.72 Absolute Eosinophils 0.18 Absolute Basophils 0.03 Sodium Potassium Chloride Carbon Dioxide Anion Gap BUN Creatinine Estimated GFR/1.73 m2 Glucose Calcium Magnesium C-Reactive Protein Procalcitonin Vancomycin Trough
[2020-08-30] MEDS: FLUoxetine 20 MG CAP PO (08:10)
[2020-08-30] MEDS: Milk of Magnesia 30 ML CUP PO (09:18)
[2020-08-30] MEDS: Docusate Sodium 100 MG CAP PO (09:18)
[2020-08-30] MEDS: ceFAZolin 1 GM/50 ML BAG IVPB ×2 (11:22→17:46)
[2020-08-30] MEDS: Acetaminophen 500 MG TAB 1000 MG PO (11:24)
--- NOTE | 2020-08-30 11:26 | PDOC.CMPRO ---
- If Service Date Differs Date of service: 08/30/20 Time of Service: 11:26 Care Management Progress Note S/O: arlene was sitting up in bed when CM met with her. She was smiling and stated that she is feeling much better and that the pain has improved. When asked, Arlene admitted that she is still not clear when she will be discharged but she thinks maybe after the weekend. When CM arrived, Arlene shared that she had been on the phone with her Grandmother. She stated that they are close and that she loves and misses her. Arlene also stated that her boyfriend has been visiting twice a day and has been very supportive. A: Arlene is a 19 year old woman admitted on 08/27/20 with cellulitis and abscess of right posterior thigh P:Arlene will likely be discharged with no home services. She will follow up with her PCP, surgeon and discharge plan of care. CM left message with [employer] re: Medicaid application and will continue to support Arlene and her discharge needs.
--- NOTE | 2020-08-30 13:21 | W.PM.PROGNOT ---
Date of Service Date of service: 08/30/20 Time of Service: 13:21 Assessment and Plan Assessment and plan (1) Sepsis: Status: Acute Assessment and plan: Due to infected wound and cellulitis RLE. It does not appear that there was necrotizing fasciitis on I&D (08/28/2020). Blood cultures are negative to date, but given recurrence of fever, are being repeated. Wound cultures/surgical cultures are pending. Wound culture is growing GPCs - discussed with [facility] - they really do not know what it is yet. WBC and CRP are improving. Continue vancomycin, but d/c clindamycin, and ertapenem, and start cefazolin. Continue probiotics. If blood cultures done today are negative, then would be ok to switch to PO abx tomorrow and keep in the hospital to ensure the patient does not get worse. Continue IVF. (2) Cellulitis of right lower extremity: Status: Acute Assessment and plan: As above (3) Hypokalemia: Status: Resolved Assessment and plan: Recheck in am. (4) Major depression: Status: Chronic Assessment and plan: Continue fluoxetine 20 mg PO daily. Discused with care management re issues with affording this medication. It is on the $4 list at [employer]. Qualifiers: Major depression recurrence: recurrent Active/Remission status: in partial remission Qualified Code(s): F33.41 - Major depressive disorder, recurrent, in partial remission (5) DVT prophylaxis: Status: Acute Assessment and plan: Not required in an ambulatory 19 year old female (6) Discharge planning issues: Status: Acute Assessment and plan: Full code Continues to require hospitalization. Subjective Subjective Interval history since last seen: Radha states that she is feeling better. Her pain is controlled. Denies dizziness, chest pain, shortness of breath, nausea. Her leg feels better. She did spike a fever of 38.1. Exam Narrative Exam Narrative: General: pleasant female, A&Ox3, looks better than yesterday, but pale HEENT: EOMI, MMM Heart: RRR, no m/r/g Lungs: CTAB Abdomen: soft, nontender, nondistended Extremities: R lateral thigh with wound vac in place; erythema better than yesterday; the dressing is saturated. Objective Last Vital Signs Temp 38.1 C H 08/30/20 12:29 Pulse 59 L 08/30/20 11:12 Resp 20 08/30/20 11:12 BP 109/71 08/30/20 11:12 Pulse Ox 98 08/30/20 11:12 Laboratory Results - last 24 hr 08/30/20 08/30/20 06:23 06:23 WBC 5.07 D RBC 4.19 Hgb 12.4 Hct 37.2 MCV 88.8 MCH 29.6 MCHC 33.3 RDW 11.4 L Plt Count 269 MPV 10.2 Immature Gran % 0.2 Neutrophils % 54.8 Lymphocytes % 26.6 Monocytes % 14.2 Eosinophils % 3.6 Basophils % 0.6 Nucleated RBC % 0 Absolute Neutrophils 2.78 Absolute Lymphocytes 1.35 Absolute Monocytes 0.72 Absolute Eosinophils 0.18 Absolute Basophils 0.03 Sodium 138 Potassium 3.8 Chloride 105 Carbon Dioxide 24.2 Anion Gap 8.8 BUN 7 Creatinine 0.93 Estimated GFR/1.73 m2 >= 60.00 Glucose 93 Calcium 8.4 L Magnesium 2.1 C-Reactive Protein 2.48 H
--- NOTE | 2020-08-30 15:45 | CHAPLAIN ---
Radha was resting in bed when I visited. She said her boyfriend would be visiting her after work today. I explained my role and offered support.
[2020-08-31] VITALS (7 sets, daily range): BP systolic 94–117; BP diastolic 54–74; PULSE 59–107; RESP 16–17; TEMP 36.5–37; O2SAT 97–100
[2020-08-31] MEDS: Normal Saline Flush 10 ML SYR IVP ×2 (01:54→17:33)
[2020-08-31] MEDS: ceFAZolin 1 GM/50 ML BAG IVPB ×3 (01:55→17:34)
[2020-08-31] MEDS: FLUoxetine 20 MG CAP PO (07:32)
[2020-08-31 08:07] LABS: Abs Immature Grans 0.01 10^3/uL (0.0-0.06); Absolute Basophil Count 0.03 10^3/uL (0.0-0.2); Absolute Eosinophil Count 0.18 10^3/uL (0.0-0.7); Absolute Lymphocyte Count 1.44 10^3/uL (1.2-3.4); Absolute Monocyte Count 0.54 10^3/uL (0.1-0.8); Absolute Neutrophil Count 2.73 10^3/uL (1.2-6.7); Basophils % 0.6; Eosinophils % 3.7; HCT 38.9 % (36.0-46.0); Immature Grans % 0.2; Lymphocytes % 29.2; MCH 29.4 pg (27.0-33.0); MCHC 33.4 % (32.0-36.0); MPV 10.2 fL (8.0-11.0); Neutrophils % 55.3; Nucleated RBC 0 %; Platelet Count 299 10^3/uL (130-400); RBC 4.42 10^6/uL (3.93-5.22); RDW 11.3 % (11.7-14.6); RDW-SD 36.3 fL; WBC 4.93 10^3/uL (4.4-10.8)
[2020-08-31 08:25] LABS: Anion Gap 8.4 mmol/L (3-11); BUN 9 mg/dL (7-18); C-Reactive Protein 1.03 mg/dL (0.0-0.3); CO2 24.6 mmol/L (21.0-32.0); CREATININE 0.84 mg/dL (0.55-1.02); Calcium 8.9 mg/dL (8.5-10.1); Chloride 105 mmol/L (98-107); Glucose 91 mg/dL (74-106); Magnesium 2.1 mg/dL (1.8-2.4); Potassium 4.1 mmol/L (3.5-5.1); Sodium 138 mmol/L (136-145)
--- NOTE | 2020-08-31 12:01 | PDOC.CMPRO ---
- If Service Date Differs Date of service: 08/31/20 Time of Service: 12:01 Care Management Progress Note S/O: No change in plan. Radha is afebrile, leukocytosis is resolved, and she continues to improve. She will remain on IV antibiotics through the weekend with a plan of switching her to oral abx on Wednesday in anticipation of discharge. CM will continue to follow. A: Radha is a 19 year old woman admitted on 08/27/20 with cellulitis and abscess of right posterior thigh. P: No change in plan. Radha will likely be discharged home with no services when medically cleared by provider. She will follow up with her PCP, surgeon and discharge plan of care. CM left message with [employer] re: Medicaid application and will continue to support Radha and her discharge needs.
--- NOTE | 2020-08-31 16:59 | PGE_ITS ---
Date of Service Date of service: 08/31/20 Time of Service: 17:00 Assessment and Plan Assessment and plan (1) Cellulitis and abscess of leg: Status: Acute Assessment and plan: Patient continues to improve. She remains on Ancef and vancomycin. With no clear organisms on her blood and wound cultures to guide antibiotic therapy she remains on anti-streptococcal and antistaphyl ococcal treatment. I will continue IV antibiotics over the weekend and plan to switch her over to oral antibiotics with potential discharge on Wednesday. I think she will need 14-day course of antibiotics to include both antistaphylococcal and anti-streptococcal oral antibiotics. IV Ancef can be switched to Keflex at high dose I believe that she can be put on Bactrim DS for antistaphylococcal coverage. Subjective Subjective Interval history since last seen: Patient remains afebrile and her leukocytosis is resolved. Repeat white cell count is 4900 today. CRP is now down to 1.0. She remains on vancomycin and Ancef for right thigh cellulitis. She is status post incision and drainage that was performed on August 28, 2020 out of concern for potential abscess. Patient had a 10 cm x 4 cm area of blistering and necrosis of the skin surrounding an area of erythema and there was concern s he had a necrotizing fasciitis. CT scan did not show evidence of fasciitis and incision and drainage procedure including excision of the blisters in which purulent material was removed and aerobic and anaerobic cultures were obtained the dermis was removed and subcutaneous tissue was inspected. Fatty tissue appeared to be normal there was no evidence for fasciitis after the incision had been gently dissected down to the fascia. Her blood cultures from August 27 as well as repeat wound culture from August 28 showed no growth. Exam Narrative Exam Narrative: Young female lying in bed on her left side watching TV and playing games with her phone. She is alert and oriented person place time circumstance. Right posterior lateral thigh has a dressing over the wound with wick coming out of the wound. There is no purulent drainage. The maximal area of erythema had been circled with pen by the nurses and the current area of erythema has receded and appears to be more of a pink rather than erythematous. There is no induration and no tenderness to palpation. Objective Last Vital Signs Temp 36.9 C 08/31/20 15:41 Pulse 64 08/31/20 16:10 Resp 17 08/31/20 15:41 BP 94/54 L 08/31/20 16:10 Pulse Ox 99 08/31/20 15:41 Laboratory Results - last 24 hr 08/30/20 08/31/20 08/31/20 17:07 07:53 07:53 WBC 4.93 RBC 4.42 Hgb 13.0 Hct 38.9 MCV 88.0 MCH 29.4 MCHC 33.4 RDW 11.3 L Plt Count 299 MPV 10.2 Immature Gran % 0.2 Neutrophils % 55.3 Lymphocytes % 29.2 Monocytes % 11.0 Eosinophils % 3.7 Basophils % 0.6 Nucleated RBC % 0 Absolute Neutrophils 2.73 Absolute Lymphocytes 1.44 Absolute Monocytes 0.54 Absolute Eosinophils 0.18 Absolute Basophils 0.03 Sodium 138 Potassium 4.1 Chloride 105 Carbon Dioxide 24.6 Anion Gap 8.4 BUN 9 Creatinine 0.84 Estimated GFR/1.73 m2 >= 60.00 Glucose 91 Calcium 8.9 Magnesium 2.1 C-Reactive Protein 1.03 H Vancomycin Trough 17.0
--- NOTE | 2020-08-31 17:59 | W.PM.PROGNOT ---
Date of Service Date of service: 08/31/20 Time of Service: 11:30 Assessment and Plan Assessment and plan (1) Cellulitis of right lower extremity: Status: Acute Assessment and plan: WBC normal, no fever since noon yesterday Site looks good, no obvious need for further debridement Awaiting repeat blood culture results and transition to PO antibiotics before discharge. Subjective Subjective Interval history since last seen: No complaints Pain is much better than admission MYESHA working well Tolerating PO Exam Narrative Exam Narrative: No distress MYESHA dressing intact, stable area of drainage in the middle Surrounding tissue soft, no crepitus or tenderness Erythema negligible and receded from the marked area Objective Last Vital Signs Temp 98.4 F 08/31/20 15:41 Pulse 64 08/31/20 16:10 Resp 17 08/31/20 15:41 BP 94/54 L 08/31/20 16:10 Pulse Ox 99 08/31/20 15:41 Laboratory Results - last 24 hr 08/31/20 08/31/20 07:53 07:53 WBC 4.93 RBC 4.42 Hgb 13.0 Hct 38.9 MCV 88.0 MCH 29.4 MCHC 33.4 RDW 11.3 L Plt Count 299 MPV 10.2 Immature Gran % 0.2 Neutrophils % 55.3 Lymphocytes % 29.2 Monocytes % 11.0 Eosinophils % 3.7 Basophils % 0.6 Nucleated RBC % 0 Absolute Neutrophils 2.73 Absolute Lymphocytes 1.44 Absolute Monocytes 0.54 Absolute Eosinophils 0.18 Absolute Basophils 0.03 Sodium 138 Potassium 4.1 Chloride 105 Carbon Dioxide 24.6 Anion Gap 8.4 BUN 9 Creatinine 0.84 Estimated GFR/1.73 m2 >= 60.00 Glucose 91 Calcium 8.9 Magnesium 2.1 C-Reactive Protein 1.03 H
[2020-09-01] MEDS: Normal Saline Flush 10 ML SYR IVP (01:45)
[2020-09-01] MEDS: ceFAZolin 1 GM/50 ML BAG IVPB ×2 (01:46→09:44)
[2020-09-01 03:36] VITALS: BP 96/60; PULSE 71; RESP 17; TEMP 36.6; O2SAT 99
[2020-09-01 07:18] VITALS: BP 112/69; PULSE 65; RESP 17; TEMP 36.6; O2SAT 97
[2020-09-01] MEDS: FLUoxetine 20 MG CAP PO (08:33)
[2020-09-01 09:39] LABS: Vancomycin, Trough 19.9 ug/mL (10.0-20.0)
--- NOTE | 2020-09-01 10:03 | W.PM.PROGNOT ---
Date of Service Date of service: 09/01/20 Time of Service: 10:03 Assessment and Plan Assessment and plan (1) Cellulitis of right lower extremity: Status: Acute Assessment and plan: Wound is stable WBC normal yesterday, still no fever. Recent blood culture with no growth after 24 hours (yesterday's result). Antibiotics/discharge per medicine. Subjective Subjective Interval history since last seen: No complaints No significant pain Exam Narrative Exam Narrative: Right thigh site looks stable Stable spotting on dressing No worsening of erythema No tenderness Objective Last Vital Signs Temp 97.9 F 09/01/20 07:18 Pulse 65 09/01/20 07:18 Resp 17 09/01/20 07:18 BP 112/69 09/01/20 07:18 Pulse Ox 97 09/01/20 07:18 Laboratory Results - last 24 hr 09/01/20 09:11 Vancomycin Trough 19.9
[2020-09-01] MEDS: Sulfameth/Trimeth DS TAB 1 TAB PO (10:50)
[2020-09-01] MEDS: Cephalexin 500 MG CAP PO ×2 (10:50→12:03)
[2020-09-01 11:07] VITALS: BP 104/62; PULSE 60; RESP 16; TEMP 36.3; O2SAT 100
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
--- NOTE | 2020-09-01 12:41 | PDOC.CMDIS ---
- If Service Date Differs Date of service: 09/01/20 Time of Service: 12:41 LACE Index Scoring Tool - Questions: Length of Stay (in days): 4 - 6 Acuity (Admit via E.D.?): Yes E.D. Visits: 2 - Answers: Total Score: 9 Risk of Readmission: Low Risk Care Management Discharge Reason for Hospitalization: Cellulitis and abscess of leg Discharge Plan: Radha is discharged home with no new services. Her mom is driving her home via private vehicle. Radha will follow up with her PCP, Dr. Branch, surgeon, and her discharge plan of care as directed. Patient/Family Education Needs: Discharge instructions, limitations, follow up plan of care, including Ask Me Three and self management.
== END 2020-09-01 13:16 | disposition home or self-care (01) | DRG 603 ==
LOC: ER 08-28 00:04 → MS 08-28 00:08
PROVIDERS: Internal Medicine; Physician Assistant; Surgery; Admitting Provider Family Medicine; Emergency Provider Emergency Medicine; PCP Pediatrics; Visit Provider Family Medicine
PROC: 0HBHXZZ Excision of Right Upper Leg Skin, External Approach (ICD-10-PCS; CPT 11000; principal; 2020-08-28 16:15)
DX: L03.115 Cellulitis of right lower limb (principal); L02.415 Cutaneous abscess of right lower limb; F41.9 Anxiety disorder, unspecified; L30.9 Dermatitis, unspecified; H91.90 Unspecified hearing loss, unspecified ear; E87.6 Hypokalemia; F33.41 Major depressive disorder, recurrent, in partial remission
CPT/HCPCS: 11000; 36415; 80048; 80053; 80307; 81025; 82550; 82805; 84145; 87040; 90686; 96361; 96365; 96366; 96375; 99222; 99232; 99233; 99238; 99253; 99291; NC; U0003; 73701; 80202; 81003; 81015; 83605; 83735; 85025; 86140; 87070; 87075; 87205; 94667; J0131; J0690; J1335; J1885; J2060; J2250; J2405; J3490

== ENCOUNTER 2021-05-15 02:06 | Outpatient (CLI) | payer SELFPAY ==
[2021-05-15 11:44] LABS: FREE T4 1.24 ng/dL (0.76-1.46)
[2021-05-15 18:03] LABS: FSH 8.9 mIU/mL (See Note)
[2021-05-15 18:08] LABS: Prolactin 14.5 ng/mL (See Table)
[2021-05-16 10:08] LABS: HIV-1/2 Ag & Ab Screen Negative (Negative)
[2021-05-16 10:18] LABS: Hepatitis C Ab w Rflx HCV PCR Negative (Negative)
[2021-05-16 10:33] LABS: DHEA Sulfate 271 ug/dL (134-407)
[2021-05-16 14:24] LABS: Syphilis Total Ab w/Reflex Nonreactive (Nonreactive)
[2021-05-19 15:27] LABS: Testosterone, Total 97 ng/dL (8-60)
[2021-05-24 14:55] LABS: Testosterone, Free 1.97 ng/dL (0.06-1.08); Testosterone, Total 94 ng/dL (8-60)
== END 2021-05-15 02:07 | disposition home or self-care (01) ==
PROVIDERS: PCP Pediatrics; Visit Provider Nurse Practitioner Women's Health
DX: N91.1 Secondary amenorrhea (principal); Z11.3 Encounter for screening for infections with a predominantly sexual mode of transmission; Z11.4 Encounter for screening for human immunodeficiency virus [HIV]; Z11.59 Encounter for screening for other viral diseases
CPT/HCPCS: 36415; 82627; 84402; 84403; 86803; 87389; 83001; 84146; 84439; 84443; 86780

== ENCOUNTER 2021-07-03 08:05 | Outpatient (REF) | payer SELFPAY ==
[2021-07-05 18:19] LABS: COVID-19 RT-PCR UVMMC Result Negative (Negative)
== END 2021-07-03 08:06 | disposition home or self-care (01) ==
LOC: LBN 08:05
PROVIDERS: PCP Pediatrics; Visit Provider Pediatrics
DX: Z20.822 Contact with and (suspected) exposure to COVID-19 (principal)
CPT/HCPCS: U0003